=== PATIENT | female | born 1985 | race Caucasian/White ===

== ENCOUNTER 2023-02-13 15:23 | Emergency (ER) | payer SELFPAY ==
[2023-02-13 15:33] VITALS: BP 154/94; PULSE 88
== END 2023-02-13 16:10 | disposition left against medical advice (07) ==
LOC: MW.ED 15:23
DX: Z53.21 Procedure and treatment not carried out due to patient leaving prior to being seen by health care provider (principal)

== ENCOUNTER 2023-07-18 08:46 | Day surgery (SDC) | payer BC ==
[~2023-07-18 08:46] MED LIST: Lactated Ringers 1,000 ML IV SCH; Sodium Chloride 0.9% 10 ML Syringe FLUSH PRN; Sodium Chloride 0.9% 2.5 ML Syringe FLUSH PRN; Sodium Chloride 0.9% 20 ML SDV IV PRN
[2023-07-18] MEDS ORDERED: propofoL 50 ML ONE (09:38)
[2023-07-18] MEDS ORDERED: Dexmedetomidine 200 MCG/2 ML SDV ONE (11:00)
[2023-07-18 12:41] VITALS: BP 121/59; PULSE 65
== END 2023-07-18 11:42 | disposition home or self-care (01) ==
LOC: MW.SDS 08:46
PROVIDERS: ATTEND Surgery
DX: R10.13 Epigastric pain (principal); R11.0 Nausea; K21.9 Gastro-esophageal reflux disease without esophagitis; Z87.891 Personal history of nicotine dependence; Z79.899 Other long term (current) drug therapy
CPT/HCPCS: 43239; 81025; J2704; J7120; J3490